=== PATIENT | female | born 1985 | race Caucasian/White ===

== ENCOUNTER 2019-03-15 15:37 | Outpatient (REF) | payer MEDICAID, SELFPAY ==
--- NOTE | 2019-03-15 15:30 | PAPFT_PTH ---
PATIENT: Viktoriya Coronado LOC: PATTI U#:[id number] AGE/SX: 33/F ROOM: RE03/15/[address]: Sunitha Gracia : 1985 BED: DIS: 03/15/2019 SPEC #: [id number] RECD: 03/15/19 17:31 STATUS: RACHANA LEONOR #: [id number] JACKELINE: 03/15/19 15:[address]: Sunitha Garcia DEPT: [facility] Cytology RECD BY: Theresa Servin ENTERED: 03/15/19 17:35 SP TYPE: PAPFT OTHR DR: Mervat Rubi Tissues: 1 - CX/ENDOCX FOR PAP SMEARS Procedures: PAP THIN PREP/UVM Screening HPV DNA PROBE Comments: [id number]
== END 2019-03-15 15:57 ==
LOC: LBN 15:37
PROVIDERS: PCP Family Medicine; Visit Provider Obstetrics & Gynecology Gynecology
DX: Z12.4 Encounter for screening for malignant neoplasm of cervix (principal); Z11.51 Encounter for screening for human papillomavirus (HPV)
CPT/HCPCS: 88142; 87624

== ENCOUNTER 2019-03-15 15:40 | Outpatient (CLI) | payer MEDICAID, SELFPAY ==
[2019-03-15 16:11] LABS: HCT 39.8 % (36.0-46.0); HGB 13.3 g/dL (12.0-15.5); Mean Corp. HGB Concentration 33.4 g/dL (32.0-36.0); Mean Corpuscular Hemoglobin 30.1 pg (27.0-33.0); Mean Platelet Volume 9.9 fL (8.0-11.0); Platelet Count 310 x1000/uL (130-400); RBC 4.42 m/cumm (4.00-5.20); RBC Distribution Width 12.7 % (11.7-14.6); White Blood Cell Count 8.16 k/cumm (4.4-10.8)
[2019-03-15 17:52] LABS: C-Reactive Protein 0.44 mg/dL (0.0-0.3)
[2019-03-15 18:34] LABS: Folate 9.7 ng/mL (8.6-20.0); Vitamin B12 312 pg/mL (193-986)
[2019-03-17 14:04] LABS: ANA Interpretation Negative (Negative)
[2019-03-17 19:13] LABS: Complement, Total 65 U/mL (30 - 75)
== END 2019-03-15 16:00 ==
PROVIDERS: Visit Provider Obstetrics & Gynecology Gynecology
DX: M32.9 Systemic lupus erythematosus, unspecified (principal); M79.10 Myalgia, unspecified site; G89.29 Other chronic pain
CPT/HCPCS: 36415; 85027; 82607; 82746; 86038; 86140; 86162

== ENCOUNTER 2021-10-28 17:11 | Emergency (ER) | payer MEDICAID, SELFPAY ==
[2021-10-28 17:25] VITALS: BP 127/67; PULSE 99; RESP 18; TEMP 37.1; O2SAT 97
[2021-10-28 18:02] LABS: Clarity Sl Cloudy (Clear); Glucose Color Interference mg/dL (Negative); Ketones Color Interference mg/dL (Negative); Leukocyte Esterase Color Interference (Negative); Nitrite Color Interference (Negative); Specific Gravity 1.015 (1.005-1.025)
[2021-10-28 18:03] LABS: Bilirubin Color Interference (Negative); Blood Color Interference (Negative); Urobilinogen Color Interference EU/dL (Up TO 0.2)
[2021-10-28 18:04] LABS: Bacteria Few HPF (Negative); C & S Indicated? No/Sq. Contamination; Casts Negative LPF (Negative); Crystals Negative HPF (Negative); Epithelial Cells Many HPF (Negative); Mucus Negative (Negative); RBC Negative HPF (0-2); WBC 20-50 HPF (0-5)
[2021-10-28 18:08] VITALS: BP 120/77; PULSE 101; RESP 16; TEMP 37.3; O2SAT 96
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
[2021-10-28] MEDS: levoFLOXacin 500 MG, levoFLOXacin 250 MG 750 MG PO (19:06)
--- NOTE | 2021-10-28 19:13 | NUR.NOTE ---
Referral faxed to [facility] to f/u for recurrent UTI's.Nursing Note:
[2021-10-28] MEDS: Normal Saline 1,000 ML 1000 ML IV (19:15)
[2021-10-28 19:18] LABS: Absolute Basophil Count 0.04 10^3/uL (0.0-0.2); Absolute Eosinophil Count 0.28 10^3/uL (0.0-0.7); Absolute Lymphocyte Count 2.91 10^3/uL (1.2-3.4); Absolute Monocyte Count 0.28 10^3/uL (0.1-0.8); Absolute Neutrophil Count 1.73 10^3/uL (1.2-6.7); Basophils % 0.8; Eosinophils % 5.3; HCT 38.2 % (36.0-46.0); HGB 12.9 g/dL (11.2-15.7); Lymphocytes % 55.5; MCH 29.9 pg (27.0-33.0); MCHC 33.8 % (32.0-36.0); MCV 88 fL (80-95); MPV 9.6 fL (8.0-11.0); Monocytes % 5.3; Neutrophils % 33.1; Platelet Count 250 10^3/uL (130-400); RBC 4.32 10^6/uL (3.93-5.22); RDW 11.4 % (11.7-14.6); RDW-SD 36.6 fL; WBC 5.24 10^3/uL (4.4-10.8)
[2021-10-28 19:33] LABS: ALT 19 U/L (14-59); AST 20 U/L (15-37); Albumin 3.9 g/dL (3.4-5.0); Alkaline Phosphatase 58 U/L (46-116); Anion Gap 6.9 mmol/L (3-11); BUN 7 mg/dL (7-18); Bilirubin, Total 0.2 mg/dL (0.2-1.0); CO2 32.1 mmol/L (21.0-32.0); Calcium 8.9 mg/dL (8.5-10.1); Chloride 102 mmol/L (98-107); Estimated GFR 74.41 (mL/min/1.73m2); Glucose 93 mg/dL (74-106); Potassium 3.6 mmol/L (3.5-5.1); Sodium 141 mmol/L (136-145); Total Protein 7.5 g/dL (6.4-8.2)
[2021-10-28 19:52] VITALS: PULSE 74; RESP 18; TEMP 36.9; O2SAT 96
[2021-10-28] MEDS: Fluconazole 150 MG TAB PO (20:50)
--- NOTE | 2021-10-29 08:06 | NUR.NOTE ---
Nursing Note: Yue Stephenr, on [employer], called asking about pt time left. Pt called her last but she has not heard or able to contact her since. I told her that she was here for UTI, which she was aware of.
== END 2021-10-28 20:55 | disposition home or self-care (01) ==
PROVIDERS: Emergency Provider Physician Assistant; PCP Obstetrics & Gynecology Gynecology
DX: N39.0 Urinary tract infection, site not specified (principal); F17.290 Nicotine dependence, other tobacco product, uncomplicated
CPT/HCPCS: 80053; 81025; 96360; 99284; 81003; 81015; 85025

== ENCOUNTER 2023-09-23 13:49 | Outpatient (REF) | payer MEDICAID, SELFPAY ==
--- NOTE | 2023-09-23 13:45 | PAPFT_PTH ---
PATIENT: Viktoriya Coronado LOC: PATTI U#:[id number] AGE/SX: 38/F ROOM: RE09/23/[address]: Sunitha Garcia : 1985 BED: DIS: 09/23/2023 SPEC #: [id number] RECD: 09/23/23 18:26 STATUS: RACHANA RERaffaele #: [id number] JACKELINE: 09/23/23 13:[address]: Sunitha Garcia DEPT: [facility] Cytology RECD BY: Theresa Servin Tissues: 1 - CX/ENDOCX FOR PAP SMEARS Procedures: PAP THIN PREP/UVM Screening HPV DNA PROBE Comments: [id number] (HPV 16 & 18/45)
[2023-09-23 17:20] LABS: *AMPHETAMINES SCREEN URINE Negative (Negative); *BARBITURATES SCREEN URINE Negative (Negative); *BENZODIAZEPINES SCREEN URINE Negative (Negative); Cannabinoids THC Negative (Negative); Cocaine Screen,Urine Positive (Negative); METHADONE URINE SCREEN Negative (Negative); OPIATES URINE SCREEN Negative (Negative)
[2023-09-23 17:46] LABS: Tricyclic Antidepressants Negative (Negative)
[2023-09-24 12:45] LABS: Chlamydia Result Negative (Negative); GC Result Negative (Negative)
== END 2023-09-23 13:50 | disposition home or self-care (01) ==
LOC: LBN 13:49
PROVIDERS: PCP Obstetrics & Gynecology Gynecology; Visit Provider Obstetrics & Gynecology Gynecology
DX: Z11.3 Encounter for screening for infections with a predominantly sexual mode of transmission (principal); R41.840 Attention and concentration deficit
CPT/HCPCS: 80307; 87491; 87591; 88142; 87624